=== PATIENT | female | born 1980 | race American Indian/Alaskan Native ===

== ENCOUNTER 2017-08-24 09:25 | Outpatient (CLI) | payer BC ==
--- NOTE | 2017-08-25 10:57 | Mammography Report ---
BILATERAL DIGITAL DIAGNOSTIC MAMMOGRAM with CAD and LEFT BREAST ULTRASOUND: 08/24/17 09:00:00 CLINICAL: Left breast pain. COMPARISON:None. FINDINGS: The breasts are almost entirely fatty.No mass, suspicious architectural distortion or suspicious calcifications. Ultrasound of the left breast (including all four quadrants and the retroareolar area) was performed. An oval slightly collapsed complex cyst at 2 o'clock 7 cm from the nipple measures 6 x 2 x 5 mm. No solid mass or shadowing. Ultrasound of the left axilla demonstrated to lymph nodes with benign morphology. The largest measures 2.3 x 0.9 cm. IMPRESSION: Negative mammogram.A 6 mm benign cyst of the left breast at 2 o'clock. No explanation for left breast pain. BI-RADS CATEGORY: 2 -- Benign RECOMMENDATION: Clinical followup and routine mammographic screening based on ACS guidelines. COMMENT: Patient follow-up letters are generated by our [employer] Access application.
== END 2017-08-24 09:26 | disposition home or self-care (01) ==
LOC: MAMMO 09:25
PROVIDERS: ATTEND Internal Medicine
DX: N60.02 Solitary cyst of left breast (principal)
CPT/HCPCS: 77066